=== PATIENT | female | born 1950 | race Caucasian/White ===

== ENCOUNTER 2024-07-01 19:10 | Inpatient (IN) | payer OTHER ==
[~2024-07-01] VITALS: Ht 157.5 cm; Wt 78.2 kg
[2024-07-01] MEDS: ATORVASTATIN 20 MG TAB PO SCH (00:35)
--- NOTE | 2024-07-01 19:31 | ED.PDOC ---
GI ASSESSMENT HPI Comments 73 y.o female with PMH of CHF, presents to the ED via EMS for an evaluation of GI bleed. Patient reports rectal bleeding for the past 2 days associated with nausea, vomiting, abdominal pain, and generalized weakness. Patient is unable to keep any fluid down and has not been able to eat x 2 days due to pain. Today, patient was getting up from the couch at home and had a near syncopal. Patient feels increased weakness now and called 911. EMS reports blood pressure did drop to 90's systolic, was given 500 CC IV fluids bringing it back up to the 100's systolic. Upon ED arrival, patient complains of spontaneous onset chest pain x today. No other symptoms or pain reported. Chief Complaint: GI Bleed Time Seen by MD: 19:24 Reviewed Notes: Nurses Notes, Doughmaker Notes, Medications, Allergies Allergies: Coded Allergies: Cephalexin (Verified Allergy, Unknown, 07/01/24) Information Source: Patient, Emergency Med Personnel Mode of Arrival: EMS Timing: Weeks Duration: Since onset Prehospital treatment: None Quality: Aching Vomitus: Food Particles Stool: Blood Streaked Severity: Moderate Recent: None Recent Hx of: None Pain Location: Diffuse Associated sign and symptoms: Nausea, Vomiting, Hematochezia, Abdominal Pain, Blood in Stool Past Medical History PAST MEDICAL HISTORY: CHF Surgical History: Denies all surgeries SITE LEAD History: No Pertinent SITE LEAD History Family History Family History: Reviewed,noncontributory to illness, No family hx of Cancer, No family hx of DM, No family hx of Heart eugenio, No family hx of HTN, No family hx ofKidney eugenio, No family hx of Liver eugenio, No family hx of Lung eugenio, No family hx of Stroke Social History Smoker: Non-Smoker Alcohol: Denies ETOH Use Drugs: Denies Drug Use Lives In: Home Constitutional: reports: malaise; denies: chills, diaphoresis, fatigue, fever, sweats, weakness, others EENTM: denies: blurred vision, double vision, ear bleeding, ear discharge, ear drainage, ear pain, ear ringing, eye pain, eye redness, hearing loss, mouth pain, mouth swelling, nasal discharge, nose bleeding, nose congestion, nose pain, photophobia, tearing, throat pain, throat swelling, voice changes, others Respiratory: denies: cough, hemoptysis, orthopnea, SOB at rest, shortness of breath, SOB with excertion, stridor, wheezing, others Cardiovascular: denies: chest pain, dizzy spells, diaphoresis, Dyspnea on exertion, edema, irregular heart beat, left arm pain, lightheadedness, palpitations, PND, syncope, others Gastrointestinal: reports: abdominal pain, nausea, rectal bleeding, vomiting; denies: abdomen distended, blood streaked bowels, constipated, diarrhea, dysphagia, difficulty swallowing, hematemesis, melena, poor appetite, poor fluid intake, rectal pain, others Genitourinary: denies: abnormal vagina bleeding, burning, dyspareunia, dysuria, flank pain, frequency, hematuria, incontinence, pain, , vagina discharge, urgency, others Neurological: reports: dizziness; denies: fainting, headache, left sided numbness, left sided weakness, numbness, paresthesia, pre-existing deficit, right sided numbness, right sided weakness, seizure, speech problems, tingling, tremors, weakness, others Musculoskeletal: denies: back pain, gout, joint pain, joint swelling, muscle pain, muscle stiffness, neck pain, others Integumetry: reports: change in color (pale ); denies: bruises, change in hair/nails, dryness, laceration, lesions, lumps, rash, wounds, others Allergic/Immunocompromised: denies: Difficulty Healing, Frequent Infections, Hives, Itching, others Hematologic/Lymphatic: denies: anemia, blood clots, easy bleeding, easy bruising, swollen glands, others Endocrine: denies: excessive hunger, excessive sweating, excessive thirst, excessive urination, flushing, intolerance to cold, intolerance to heat, unexplained weight gain, unexplained weight loss, others Psychiatric: denies: anxiety, bipolar disorder, depression, hopeless, panic disorder, schizophrenia, sleepless, suicidal, others All Other Systems: Reviewed and Negative Physical Exam General Appearance: Mild Distress (Due to rectal bleeding concerns), Normal HEENT: Normal ENT Inspection, Pharynx Normal, TMs Normal Neck: Full Range of Motion, Non-Tender, Normal, Normal Inspection Respiratory: Chest Non-Tender, Lungs Clear, No Accessory Muscle Use, No Respiratory Distress, Normal Breath Sounds Cardiovascular: No Edema, No JVD, No Murmur, No Gallop, Normal Peripheral Pulses, Regular Rate/Rhythm Breast Exam: Deferred Gastrointestinal: No Pulsatile Mass, Normal Bowel Sounds, Soft, Tenderness (Diffuse) Genitalia: Deferred Pelvic: Deferred Rectal: Deferred Extremities: No calf tenderness, Normal capillary refill, Normal inspection, Normal range of motion, Non-tender, No pedal edema Neurologic: Alert, sales account leader II-XII nml as Tested, No Motor Deficits, Normal Affect, Normal Mood, No Sensory Deficits Cerebellar Function: Normal Reflexes: Normal Skin: Dry, Normal Color, Warm Lymphatic: No Adenopathy Was a procedure done? Was a procedure done?: No GI differential Dx Differential Diagnosis: Bowel Obstruction, Cholangitis, Diverticular disease, Gastritis/PUD, Gastroenteritis, GI hemorrhage, Inflammatory BD, Ischemic Bowel, Pancreatitis, Anemia, Esophageal Varicies X-Ray, Labs, Meds, VS Vital Signs Date Time Temp Pulse Resp B/P (MAP) Pulse Ox O2 Delivery O2 Flow Rate FiO2 07/01/24 19:48 Room Air* 0 21 07/01/24 19:28 97 07/01/24 19:21 97.9 83 16 101/69 (80) 98 Lab Test 07/01/24 19:30 Range/Units White Blood Count 8.0 4.4-10.8 10^3/uL Red Blood Count 1.74 L 4.0-5.20 10^6/uL Hemoglobin 4.8 *L 12.2-16.2 g/dL Hematocrit 15.7 L 36.0-46.0 % Mean Corpuscular Volume 90.0 80.0-100.0 fL Mean Corpuscular Hemoglobin 27.3 L 28.0-32.0 pg Mean Corpuscular Hemoglobin Concent 30.4 L 32.0-36.0 g/dL Red Cell Distribution Width 16.3 H 11.8-14.3 % Platelet Count 300 140-450 10^3/uL Mean Platelet Volume 7.8 6.9-10.8 fL Neutrophils (%) (Auto) 77.7 37.0-80.0 % Lymphocytes (%) (Auto) 9.1 L 10.0-50.0 % Monocytes (%) (Auto) 12.4 H 0.0-12.0 % Eosinophils (%) (Auto) 0.2 0.0-7.0 % Basophils (%) (Auto) 0.6 0.0-2.0 % Neutrophils # (Auto) 6.2 1.6-8.6 10 ^3/uL Lymphocytes # (Auto) 0.7 0.4-5.4 10 ^3/uL Monocytes # (Auto) 1.0 0-1.3 10 ^3/uL Eosinophils # (Auto) 0 0-0.8 10 ^3/uL Basophils # (Auto) 0.1 0-0.2 10 ^3/uL Nucleated Red Blood Cells 2.1 % Platelet Estimate Adequate Tear Drop Cells Few Reticulocyte Count (auto) 7.37 H 0.5-1.5 % Sodium Level 144 136-145 mmol/L Potassium Level 4.3 3.5-5.1 mmol/L Chloride Level 111 H 98-107 mmol/L Carbon Dioxide Level 22 20-31 mmol/L Anion Gap 11 5-15 Blood Urea Nitrogen 25 H 9-23 mg/dL Creatinine 0.98 0.550-1.02 mg/dL Glomerular Filtration Rate Calc 61 >90 mL/min BUN/Creatinine Ratio 25.5 H 10.0-20.0 Serum Glucose 124 H 74-106 mg/dL Calcium Level 9.1 8.7-10.4 mg/dL Total Bilirubin 0.6 0.2-1.0 mg/dL Aspartate Amino Transferase (AST) 90 H 13-40 U/L Alanine Aminotransferase (ALT) 50 H 7-40 U/L Alkaline Phosphatase 70 46-116 U/L Lactate Dehydrogenase Pending Troponin I High Sensitivity 13 </=34 ng/L B-Type Natriuretic Peptide 348.63 0-100 pg/mL Total Protein 5.5 L 5.7-8.2 g/dL Albumin 3.8 3.2-4.8 g/dL Current Medications Medications (Trade) Dose Ordered Sig/Eulalia Route Start Time Stop Time Status Last Admin Ondansetron HCl (Zofran Po) 4 mg ONCE ONCE PO 07/01/24 19:30 07/01/24 19:31 DC 07/01/24 19:57 Sodium Chloride 1,000 ml @ 150 mls/hr Q6H40M ONCE IV 07/01/24 19:30 07/02/24 02:09 07/01/24 19:56 Al Hydrox/Mg Hydrox/Simethicone (Maalox Plus) 30 ml ONCE ONCE PO 07/01/24 19:30 07/01/24 19:31 DC 07/01/24 19:56 X-Ray, Labs, Meds, VS Comment All studies performed at the ED today were reviewed by me personally. Imaging studies were unremarkable acute pulmonary concerns. CT ab/pelvis is pending at time of this note. EKG revealed unknown rhythm with irregular rate, rate 97, WA int. of 142 and QT int. of 431. My represent rate controlled Afib. Labs revealed critical anemia as well as an acute CHF exacerbation. Pt will be admitted for eval. of critical anemia as well as cardiac evaluation. Time of 1ST Reevaluation: 20:23 Reevaluation 1ST: Unchanged Consultation: PCP, Cardiology Patient Education/Counseling: Diagnosis, Treatment, Prognosis Family Education/Counseling: Diagnosis, Treatment, No Family Present Departure 1 Departure Time of Disposition: 20:23 Impression: Primary Impression: Anemia Additional Impressions: Rectal bleed Acute exacerbation of CHF (congestive heart failure) Cardiac abnormality Disposition: ADMITTED INPATIENT Condition: Fair Discharged With: Self Critical Care Note Critical Care Time?: No Stability Stability form required: No I personally scribed for LIDIA JUDGE PAC ([email or web address]) on 07/01/24 at 19:31. Elec tronically submitted by Mala Joshi ([facility]). LIDIA JUDGE PAC Jul 01, 2024 19:31
[2024-07-01 19:44] LABS: Basophils # (auto) 0.1 10 ^3/uL (0-0.2); Eosinophils # (auto) 0 10 ^3/uL (0-0.8); Mean Corpuscular Hemoglobin 27.3 pg (28.0-32.0)
[2024-07-01 19:46] LABS: Basophils % (auto) 0.6 % (0.0-2.0); Eosinophils % (auto) 0.2 % (0.0-7.0); Hematocrit 15.7 % (36.0-46.0); Lymphocytes # (auto) 0.7 10 ^3/uL (0.4-5.4); Lymphocytes % (auto) 9.1 % (10.0-50.0); Mean Corpuscular Hgb Conc. 30.4 g/dL (32.0-36.0); Monocytes % (auto) 12.4 % (0.0-12.0); Neutrophils # (auto) 6.2 10 ^3/uL (1.6-8.6); Neutrophils % (auto) 77.7 % (37.0-80.0); Nucleated Red Blood Cells % 2.1 %; Platelet Count (auto) 300 10^3/uL (140-450); Red Blood Cells 1.74 10^6/uL (4.0-5.20); Red Cell Distribution Width 16.3 % (11.8-14.3)
[2024-07-01 19:49] LABS: Hemoglobin 4.8 g/dL (12.2-16.2)
[2024-07-01] MEDS: MAALOX PLUS or MAALOX 30 ML PO ONE (19:56)
[2024-07-01] MEDS: SODIUM CHLORIDE 0.9% 1,000 ML IV ONE (19:56)
[2024-07-01] MEDS: ONDANSETRON ODT 4 MG TAB PO ONE (19:57)
[2024-07-01 20:01] LABS: Alanine Aminotransferase 50 U/L (7-40); Albumin 3.8 g/dL (3.2-4.8); Alkaline Phosphatase 70 U/L (46-116); Anion Gap 11 (5-15); Aspartate Aminotransferase 90 U/L (13-40); BUN/Creatinine Ratio 25.5 (10.0-20.0); Blood Urea Nitrogen 25 mg/dL (9-23); Calcium 9.1 mg/dL (8.7-10.4); Carbon Dioxide 22 mmol/L (20-31); Chloride 111 mmol/L (98-107); Glucose 124 mg/dL (74-106); Potassium 4.3 mmol/L (3.5-5.1); Sodium 144 mmol/L (136-145)
[2024-07-01 20:02] LABS: Bilirubin, Total 0.6 mg/dL (0.2-1.0); Total Protein 5.5 g/dL (5.7-8.2)
[2024-07-01 20:06] LABS: Platelet Estimate Adequate; Tear Drop Cells FEW
--- NOTE | 2024-07-01 20:13 | DVH ---
CHEST RADIOGRAPH Indication:Chest pain Technique: Single frontal view of the chest was obtained Comparison: None FINDINGS: Lines and Tubes: None Lungs: No focal consolidation. Pleura: No effusion. No pneumothorax. Cardiomediastinal contours: Unremarkable Bones: No acute osseous abnormality. Peripherally calcified bilateral breast implants. IMPRESSION: No acute cardiopulmonary disease.
[2024-07-01] MEDS: IOHEXOL 300 MG/ML 100ML BOTTLE IJ ONE (20:24)
--- NOTE | 2024-07-01 21:42 | DVH ---
Exam: CT CT AB PEL WITH IV CON ONLY History: GI bleed Comparison Study: None available at time of dictation. TECHNIQUE: Multidetector CT of the abdomen was performed from lung bases to pubic symphysis. Imaging was performed without IV contrast. Axial, coronal and sagittal multiplanar reformats were obtained fr om the axial data set by the technologist. Radiation Dose Information: CT Dose: CTDI volume is 16.82 mGy. Dose-length product is 902.69 mGy*cm Omnipaque 300: 100 mL FINDINGS: Evaluation of solid organs is limited due to lack of intravenous contrast use. Findings: Lung Bases: No acute or significant lung base finding. Normal heart size. No pleural or pericardial effusion. Liver: The liver is normal in size. No focal lesions. Gallbladder and Biliary Tree: Unremarkable Spleen: Unremarkable Pancreas: The pancreas is grossly normal in appearance. Adrenal Glands: Unremarkable Kidneys: Kidneys are grossly normal without calculi or hydronephrosis. Bladder: Grossly unremarkable for degree of distention. Bowel: The stomach is grossly normal in appearance. Small bowel and colon are normal in caliber and d istribution. No contrast noted in the colon. There is mucosal thickening of the left colon. Correlate for possible colitis. The appendix is not visualized; however, no secondary findings of acute append icitis identified. Ascites: Absent Lymphadenopathy: No mesenteric, retroperitoneal or periportal lymphadenopathy. Abdominal Wall and Mesentery: Unremarkable. Vasculature: The visualized abdominal aorta is normal in size and caliber. Evaluation of abdominal a nd pelvic vessels is limited due to lack of intravenous contrast. Pelvic Organs: Unremarkable Musculoskeletal: No aggressive focal bony lesions, acute fractures or dislocation. Soft tissues: Unremarkable IMPRESSION: 1. No findings to suggest bowel obstruction. 2. No IV contrast noted in the colon to suggest bleed at this time. 3. Mucosal thickening of the left colon. Correlate possibility of colitis on the left. Radiation optimization: All CT scans at this facility use at least one of these dose optimization faustino hniques: automated exposure control mA and/or kV adjustment per patient size (includes targeted exam s where dose is matched to clinical indication) or iterative reconstruction.
[2024-07-01] MEDS: FUROSEMIDE 40 MG/4 ML VIAL IV ONE (21:44)
[2024-07-01] MEDS ORDERED: DOCUSATE SOD 100 MG CAP PO PRN (21:45)
[2024-07-01] MEDS ORDERED: HYDROcodone-ACET 5/325MG TAB PO PRN (21:45)
[2024-07-01] MEDS ORDERED: ONDANSETRON HCL 4 MG/2 ML VIAL IV PRN (21:45)
[2024-07-01] MEDS: SODIUM CHLOR 0.9% PF (SALINE LOCK) 10ML VIAL/SYR IV SCH (22:00)
[2024-07-01 22:25] VITALS: BP 103/43; PULSE 96; RESP 21; TEMP 98.7
--- NOTE | 2024-07-01 22:48 | DVHHP2 ---
History of Present Illness Reason for Visit: GI bleed History of Present Illness The patient is a 73-year-old female with past medical history of congestive failure who presented to [facility] ED with complaint of GI bleed. Patient reports rectal bleeding for the past 2 days associated with nausea, vomiting, abdominal pain, and generalized weakness. Patient is unable to keep any fluid down and has not been able to eat x 2 days due to pain, had a near syncopal getting worse today that prompted this visit. Patient was seen and evaluated in the ED, laboratory data shows WBC 8.0, hemoglobin 4.8, hematocrit 15.7, platelets 300, sodium 144, potassium 4.3, BUN 25, creatinine 0.98, glucose 124, BNP 348.63, AST 90, ALT 50, troponin 13. Abdomen/pelvis CT showed no findings to suggest bowel obstruction. Patient will receive 2 units of PRBC, please see medication orders section in the computer. On my assessment, patient denied chest pain, no headache, no dizziness, no blurry vision, no loss of consciousness, no shortness of breath, no nausea, no vomiting, no fever, no chills. Patient was admitted for further evaluation and medical management. Past Medical History CHF Past Surgical History Denies all surgeries Family History Reviewed, noncontributory to the management of this case. Past Social History The patient lives at home, denies smoking, alcohol or illicit drugs abuse. Review of Systems Constitutional: Yes: Weakness, Malaise; No: Fever, Chills, Sweats, Other Eyes: No: Pain, Vision change, Conjunctivae inflammation, Eyelid inflammation, Other, Redness ENT: No: Ear pain, Ear discharge, Nose pain, Nose discharge, Nose congestion, Mouth pain, Mouth swelling, Throat pain, Throat swelling, Other Respiratory: No: Cough, Dry, Shortness of breath, SOB with excertion, Wheezing, Hemoptysis, Pleuritic Pain, Sputum, Wheezing, Other Cardiovascular: No: Chest Pain, Palpitations, Orthopnea, Paroxysmal Noc. Dyspnea, Edema, Lt Headedness, Other Gastrointestinal: Nausea, Vomiting, Abdominal Pain; No: Diarrhea, Constipation, Melena, Hematochezia, Other Genitourinary: No Dysuria, No Frequency, No Incontinence, No Hematuria, No Retention; Other (Rectal bleeding) Musculoskeletal: No: other, neck pain, shoulder pain, arm pain, back pain, hand pain, leg pain, foot pain Skin: Other (Pale skin color); No: Rash, Lesions, Jaundice, Bruising Neurological: Other (Dizziness); No: Weakness, Numbness, Incoordination, Change in speech, Confusion, Seizures Allergies: Coded Allergies: Cephalexin (Verified Allergy, Unknown, 07/01/24) Medications Current Medications Medications Dose Ordered Sig/Eulalia Route Start Time Stop Time Status Last Admin Dose Admin Furosemide 40 mg DAILY IV 07/02/24 10:00 Pantoprazole Sodium 40 mg BID IV 07/01/24 22:00 Carvedilol 3.125 mg Q12HR PO 07/01/24 22:00 Atorvastatin Calcium 20 mg HS PO 07/01/24 22:00 Sodium Chloride 10 ml Q8HR IV 07/01/24 22:00 Acetaminophen/ Hydrocodone Bitart 1 tab Q4HP PRN PO 07/01/24 21:45 Ondansetron HCl 4 mg Q4HP PRN IV 07/01/24 21:45 Docusate Sodium 100 mg BIDPRN PRN PO 07/01/24 21:45 Acetaminophen 500 mg Q6HP PRN PO 07/01/24 21:45 Exam Vital Signs Vital Signs Date Time Temp Pulse Resp B/P (MAP) Pulse Ox O2 Delivery O2 Flow Rate FiO2 07/01/24 22:25 98.7 96 21 103/43 98.7 07/01/24 21:00 99 07/01/24 19:48 Room Air* 0 21 General Appearance: Alert, Oriented X3, Cooperative, No acute distress HEENT: Atraumatic, PERRLA, EOMI, Mucous membr. moist/pink Respiratory: Clear to auscultation, Normal air movement Cardiovascular: Regular rate, Normal S1, Normal S2, No murmurs Abdominal: Normal bowel sounds, Soft, No tenderness, No hepatospenomegaly, No masses Extremities: No clubbing, No cyanosis, No edema, Normal pulses, No tenderness/swelling Skin: No rashes, No breakdown, No significant lesion Neuro: Normal speech, Normal tone, Sensation intact, Cranial nerves 3-12 NL, Reflexes 2+, Other (Generalized weakness) Psych/Mental Status: Mental status NL, Mood NL Labs/Xrays Labs Test 07/01/24 22:10 07/01/24 20:55 07/01/24 19:30 Range/Units Troponin I High Sensitivity 14 </=34 ng/L White Blood Count 8.0 4.4-10.8 10^3/uL Red Blood Count 1.74 L 4.0-5.20 10^6/uL Hemoglobin 4.8 *L 12.2-16.2 g/dL Hematocrit 15.7 L 36.0-46.0 % Mean Corpuscular Volume 90.0 80.0-100.0 fL Mean Corpuscular Hemoglobin 27.3 L 28.0-32.0 pg Mean Corpuscular Hemoglobin Concent 30.4 L 32.0-36.0 g/dL Red Cell Distribution Width 16.3 H 11.8-14.3 % Platelet Count 300 140-450 10^3/uL Mean Platelet Volume 7.8 6.9-10.8 fL Neutrophils (%) (Auto) 77.7 37.0-80.0 % Lymphocytes (%) (Auto) 9.1 L 10.0-50.0 % Monocytes (%) (Auto) 12.4 H 0.0-12.0 % Eosinophils (%) (Auto) 0.2 0.0-7.0 % Basophils (%) (Auto) 0.6 0.0-2.0 % Neutrophils # (Auto) 6.2 1.6-8.6 10 ^3/uL Lymphocytes # (Auto) 0.7 0.4-5.4 10 ^3/uL Monocytes # (Auto) 1.0 0-1.3 10 ^3/uL Eosinophils # (Auto) 0 0-0.8 10 ^3/uL Basophils # (Auto) 0.1 0-0.2 10 ^3/uL Nucleated Red Blood Cells 2.1 % Platelet Estimate Adequate Tear Drop Cells Few Reticulocyte Count (auto) 7.37 H 0.5-1.5 % Sodium Level 144 136-145 mmol/L Potassium Level 4.3 3.5-5.1 mmol/L Chloride Level 111 H 98-107 mmol/L Carbon Dioxide Level 22 20-31 mmol/L Anion Gap 11 5-15 Blood Urea Nitrogen 25 H 9-23 mg/dL Creatinine 0.98 0.550-1.02 mg/dL Glomerular Filtration Rate Calc 61 >90 mL/min BUN/Creatinine Ratio 25.5 H 10.0-20.0 Serum Glucose 124 H 74-106 mg/dL Calcium Level 9.1 8.7-10.4 mg/dL Total Bilirubin 0.6 0.2-1.0 mg/dL Aspartate Amino Transferase (AST) 90 H 13-40 U/L Alanine Aminotransferase (ALT) 50 H 7-40 U/L Alkaline Phosphatase 70 46-116 U/L Lactate Dehydrogenase 246 120-246 U/L B-Type Natriuretic Peptide 348.63 0-100 pg/mL Total Protein 5.5 L 5.7-8.2 g/dL Albumin 3.8 3.2-4.8 g/dL PATIENT: CARLIE ROB ACCT: [id number] UNIT: [id number] : 1950 LOC: ER ROOM / BED: / AGE / SEX: 73 / F ADM STATUS: REG ER SERVICE 15 ORDERING PHYSICIAN: LIDIA JUDGE PAC PROCEDURE(s): ABPLIV - CT AB PEL WITH IV CON ONLY REASON: GI bleed ORDER NUMBER(s): [id number], ACCESSION NUMBER(s): [id number] Exam: CT CT AB PEL WITH IV CON ONLY History: GI bleed Comparison Study: None available at time of dictation. TECHNIQUE: Multidetector CT of the abdomen was performed from lung bases to pubic symphysis. Imaging was performed without IV contrast. Axial, coronal and sagittal multiplanar reformats were obtained from the axial data set by the technologist. Radiation Dose Information: CT Dose: CTDI volume is 16.82 mGy. Dose-length product is 902.69 mGy*cm Omnipaque 300: 100 mL FINDINGS: Evaluation of solid organs is limited due to lack of intravenous contrast use. Findings: Lung Bases: No acute or significant lung base finding. Normal heart size. No pleural or pericardial effusion. Liver: The liver is normal in size. No focal lesions. Gallbladder and Biliary Tree: Unremarkable Spleen: Unremarkable Pancreas: The pancreas is grossly normal in appearance. Adrenal Glands: Unremarkable Kidneys: Kidneys are grossly normal without calculi or hydronephrosis. Bladder: Grossly unremarkable for degree of distention. Bowel: The stomach is grossly normal in appearance. Small bowel and colon are normal in caliber and distribution. No contrast noted in the colon. There is mucosal thickening of the left colon. Correlate for possible colitis. The appendix is not visualized; however, no secondary findings of acute appendicitis identified. Ascites: Absent Lymphadenopathy: No mesenteric, retroperitoneal or periportal lymphadenopathy. Abdominal Wall and Mesentery: Unremarkable. Vasculature: The visualized abdominal aorta is normal in size and caliber. Evaluation of abdominal and pelvic vessels is limited due to lack of intravenous contrast. Pelvic Organs: Unremarkable Musculoskeletal: No aggressive focal bony lesions, acute fractures or dislocation. Soft tissues: Unremarkable IMPRESSION: 1. No findings to suggest bowel obstruction. 2. No IV contrast noted in the colon to suggest bleed at this time. 3. Mucosal thickening of the left colon. Correlate possibility of colitis on the left. ORDERING PHYSICIAN: LIDIA JUDGE PAC PROCEDURE(s): CXRP - CHEST PORTABLE REASON: Chest pain ORDER NUMBER(s): [id number], ACCESSION NUMBER(s): [id number] CHEST RADIOGRAPH Indication:Chest pain Technique: Single frontal view of the chest was obtained Comparison: None FINDINGS: Lines and Tubes: None Lungs: No focal consolidation. Pleura: No effusion. No pneumothorax. Cardiomediastinal contours: Unremarkable Bones: No acute osseous abnormality. Peripherally calcified bilateral breast implants. IMPRESSION: No acute cardiopulmonary disease. Assessment/Plan Assessment/Plan Symptomatic anemia Blood loss anemia Rectal bleed Gastrointestinal bleed Elevated liver enzymes Acute exacerbation of congestive heart failure Plan 1. Admit to telemetry unit 2. Breathing treatment 3. Pain control management 4. Management of fluids and electrolytes 5. Consultation for GI/hospitalist 6. Diagnostic tests abdomen/pelvis CT 7. DVT prophylaxis on SCDs 8. Repeat labs CBC, CMP in a.m. 9. Continue with current medical management 10. Treatment plan discussed with patient and RN. Patient verbalized understanding. Plan discussed with: Patient, Other (RN) My Orders Orders - GRETRUDE FORD DNP Procedure Category Date Status Time Furosemide Injection PHA 07/02/24 In Process (Lasix Injection) 10:00 Pantoprazole PHA 07/01/24 In Process (Protonix) 22:00 Carvedilol Tablet PHA 07/01/24 In Process (Coreg Tablet) 22:00 Atorvastatin (Lipitor) PHA 07/01/24 In Process 22:00 * Gi Dvh X Ray Equipment Mechanic CONS 07/01/24 Transmitted 21:40 Allergies ANDRE 07/01/24 In Process 21:40 Code Status CODE 07/01/24 Transmitted 21:40 Sodium Chloride Lock PHA 07/01/24 In Process (Saline Lock Ns) 22:00 Oxygen Per Hour RT 07/01/24 Transmitted 21:40 Hydrocodone-Acet PHA 07/01/24 In Process 5/325mg Tab (Alna 21:45 Ondansetron Hcl PHA 07/01/24 In Process (Zofran) 21:45 Docusate Sodium PHA 07/01/24 In Process Capsule (Colace 21:45 Fall Risk Precautions ANDRE 07/01/[address] 21:40 Complete Blood Count LAB 07/02/24 Verified 04:00 Comprehensive LAB 07/02/24 Verified Metabolic Panel 04:00 Condition: Serious ANDRE 07/01/24 In Process 21:40 Acetaminophen Tablet PHA 07/01/24 In Process (Tylenol Tablet) 21:45 Clear Liq Diet DIET 07/02/24 Transmitted Breakfast Sequential ANDRE 07/01/24 In Process Compression Device Admit ADMIT 07/01/24 Verified 22:47 Nitroglycerin PHA 07/01/24 Verified Sublingual (Ntrostat 23:00 Morphine Sulfate PHA 07/01/24 Verified Injection 23:00 Notify Of Changes ANDRE 07/01/24 Verified From Base 22:47 Stock And Station Agent For [facility] 07/01/24 Verified 24 Hours 22:47 Emergency Dysrhythmia ANDRE 07/01/24 Verified Protocol 22:47 Rhythm Strips Once [facility] 07/01/24 Verified Every Shift 22:47 Oxygen By Nasal RT 07/01/24 Verified Cannula 22:47 Problem List: (1) Symptomatic anemia (2) Blood loss anemia (3) Gastrointestinal bleed (4) Rectal bleed (5) Elevated liver enzymes (6) Acute exacerbation of congestive heart failure Date of Service: Jul 01, 2024 Billing Provider: GERTRUDE FORD DNP Common Visit Codes: [id number] INP/OBS CARE (HIGH) GERTRUDE FORD DNP Jul 01, 2024 22:48
[2024-07-01 22:53] VITALS: BP 118/43; PULSE 75; RESP 16; TEMP 99
[2024-07-01] MEDS ORDERED: NITROGLYCERIN 0.4 MG SL TAB SL PRN (23:00)
[2024-07-01] MEDS ORDERED: MORPHINE SULFATE INJ 2 MG/ml SYRG IV PRN (23:00)
[2024-07-01 23:01] LABS: Urine Bacteria FEW /hpf (None Seen); Urine Blood 2+ /uL (Negative); Urine Clarity Clear (Clear); Urine Color Light-Yellow (Yellow); Urine Mucus FEW (None Seen); Urine Protein, UAD TRACE (Negative); Urine Specific Gravity 1.024 (1.001-1.035); Urine Urobilinogen Normal (Negative); Urine WBC 1 /hpf (0 - 5)
[2024-07-02] VITALS (14 sets, daily range): BP systolic 84–133; BP diastolic 35–65; PULSE 64–108; RESP 16–20; TEMP 97.7–102.6; O2SAT 94–100
[2024-07-02] MEDS: PANTOPRAZOLE 40 MG/10 ML VIAL INJ IV SCH (00:35)
[2024-07-02] MEDS: CARVEDILOL 3.125 MG TAB PO SCH (00:35)
--- NOTE | 2024-07-02 06:15 | ECG ---
[facility] Test Date: 2024-07-01 Test Time: 19:28:26 Pat Name: CARLIE ROB Department: ED Room: 0246T Gender: F Equipment Scheduler: ELYSIA : 1950 Requested By: LIDIA JUDGE Order Number: [id number] Reading MD: Measurements Intervals [place] Rate: 97 P: 98 SD: 142 QRS: 68 QRSD: 107 T: -48 QT: 431 QTc: 548 Interpretive Statements Unknown rhythm, irregular rate Anterior infarct, age indeterminate Prolonged QT interval Please click the below link to view image of tracing.
[2024-07-02 07:13] LABS: Basophils # (auto) 0 10 ^3/uL (0-0.2); Eosinophils # (auto) 0 10 ^3/uL (0-0.8); Lymphocytes # (auto) 0.8 10 ^3/uL (0.4-5.4); Monocytes # (auto) 0.8 10 ^3/uL (0-1.3); White Blood Cell 5.8 10^3/uL (4.4-10.8)
[2024-07-02 07:16] LABS: Basophils % (auto) 0.7 % (0.0-2.0); Eosinophils % (auto) 0.3 % (0.0-7.0); Hematocrit 20.6 % (36.0-46.0); Lymphocytes % (auto) 14.2 % (10.0-50.0); Mean Corpuscular Hemoglobin 29.1 pg (28.0-32.0); Mean Corpuscular Hgb Conc. 32.8 g/dL (32.0-36.0); Mean Corpuscular Volume 88.7 fL (80.0-100.0); Monocytes % (auto) 13.2 % (0.0-12.0); Neutrophils # (auto) 4.2 10 ^3/uL (1.6-8.6); Neutrophils % (auto) 71.6 % (37.0-80.0); Nucleated Red Blood Cells % 2.7 %; Platelet Count (auto) 217 10^3/uL (140-450); Red Blood Cells 2.32 10^6/uL (4.0-5.20); Red Cell Distribution Width 15.4 % (11.8-14.3)
[2024-07-02 07:21] LABS: Hemoglobin 6.8 g/dL (12.2-16.2)
[2024-07-02 07:33] LABS: Alanine Aminotransferase 53 U/L (7-40); Albumin 3.6 g/dL (3.2-4.8); Alkaline Phosphatase 60 U/L (46-116); Anion Gap 7 (5-15); Aspartate Aminotransferase 98 U/L (13-40); BUN/Creatinine Ratio 21.7 (10.0-20.0); Blood Urea Nitrogen 20 mg/dL (9-23); Calcium 8.6 mg/dL (8.7-10.4); Carbon Dioxide 27 mmol/L (20-31); Chloride 110 mmol/L (98-107); Glucose 93 mg/dL (74-106); Potassium 3.4 mmol/L (3.5-5.1); Sodium 144 mmol/L (136-145)
[2024-07-02 07:34] LABS: Bilirubin, Total 0.8 mg/dL (0.2-1.0); Total Protein 5.2 g/dL (5.7-8.2)
[2024-07-02] MEDS: FUROSEMIDE 40 MG/4 ML VIAL IV SCH (08:27)
[2024-07-02] MEDS: ACETAMINOPHEN 325 MG TAB PO PRN (08:28)
[2024-07-02] MEDS: SODIUM CHLORIDE 0.9% 1,000 ML IV SCH (16:48)
--- NOTE | 2024-07-02 19:47 | DVHINCON2 ---
Date of service: Jul 02, 2024 Referring Physician Jesus Ayala Reason for Consultation Severe anemia History of Present Illness The patient is a 73-year-old female with past medical history of congestive failure who presented to [facility] ED with complaint of GI bleed. Patient reports rectal bleeding for the past 2 days associated with nausea, vomiting, abdominal pain, and generalized weakness. Patient is unable to keep any fluid down and has not been able to eat x 2 days due to pain, had a near syncopal getting worse today that prompted this visit. Patient was found to have severe anemia with a hemoglobin of 4.8. She received 2 units PRBC and repeat hemoglobin is 6.8. Her last colonoscopy was five years ago and she believes some polyps were removed. Patient is referred as an outpatient has an appointment with a mri supervisor in June to arrange surveillance colonoscopy. Past Medical History CHF Past Surgical History Colonoscopy Family History: Diabetes mellitus G8 MOTHER Allergies: Coded Allergies: Cephalexin (Verified Allergy, Unknown, 07/01/24) Current Medications Current Medications Medications (Trade) Dose Ordered Sig/Eulalia Route PRN Reason Start Time Stop Time Status Last Admin Furosemide (Lasix Injection) 40 mg DAILY IV 07/02/24 10:00 07/02/24 08:27 Pantoprazole Sodium (Protonix) 40 mg BID IV 07/01/24 22:00 07/02/24 08:26 Carvedilol (Coreg Tablet) 3.125 mg Q12HR PO 07/01/24 22:00 07/02/24 08:27 Atorvastatin Calcium (Lipitor) 20 mg HS PO 07/01/24 22:00 Sodium Chloride (Saline Lock Ns) 10 ml Q8HR IV 07/01/24 22:00 07/02/24 13:38 Acetaminophen/ Hydrocodone Bitart ([place] 5/325MG Tab) 1 tab Q4HP PRN PO MODERATE PAIN (4-6 PAIN SCALE) 07/01/24 21:45 Ondansetron HCl (Zofran) 4 mg Q4HP PRN IV NAUSEA / VOMITING 07/01/24 21:45 Docusate Sodium (Colace Capsule) 100 mg BIDPRN PRN PO FOR CONSTIPATION 07/01/24 21:45 Acetaminophen (Tylenol Tablet) 500 mg Q6HP PRN PO PAIN SCALE 1-3 OR TEMP>100.4 07/01/24 21:45 07/02/24 08:28 Nitroglycerin (Ntrostat Sublingual) 0.4 mg Q5MINP PRN SL FOR CHEST PAIN 07/01/24 23:00 Morphine Sulfate 2 mg Q30M PRN IV FOR CHEST PAIN 07/01/24 23:00 Sodium Chloride 1,000 ml @ 50 mls/hr Q20H IV 07/02/24 16:30 07/02/24 16:48 Vital Signs Vital Signs Date Time Temp Pulse Resp B/P (MAP) Pulse Ox O2 Delivery O2 Flow Rate FiO2 07/02/24 17:37 98.6 76 17 103/64 (77) 96 98.6 07/02/24 08:00 Nasal Cannula* 2 28 Physical Exam General Appearance: Alert, Oriented X3, Cooperative, No acute distress HEENT: Atraumatic, PERRLA, EOMI, Mucous membr. moist/pink Respiratory: Clear to auscultation, Normal air movement Cardiovascular: Regular rate, Normal S1, Normal S2, No murmurs Abdominal: Normal bowel sounds, Soft, No tenderness, No hepatospenomegaly, No masses Extremities: No clubbing, No cyanosis, No edema, Normal pulses, No tenderness/s welling Skin: No rashes, No breakdown, No significant lesion Neuro: Normal speech, Normal tone, Sensation intact, Cranial nerves 3-12 NL, Reflexes 2+, Other (Generalized weakness) Psych/Mental Status: Mental status NL, Mood NL Labs/Diagnostic Data Labs Test 07/02/24 06:13 07/01/24 22:10 07/01/24 20:55 07/01/24 19:30 Range/Units White Blood Count 5.8 # 4.4-10.8 10^3/uL Red Blood Count 2.32 L 4.0-5.20 10^6/uL Hemoglobin 6.8 #*L 12.2-16.2 g/dL Hematocrit 20.6 #L 36.0-46.0 % Mean Corpuscular Volume 88.7 80.0-100.0 fL Mean Corpuscular Hemoglobin 29.1 28.0-32.0 pg Mean Corpuscular Hemoglobin Concent 32.8 32.0-36.0 g/dL Red Cell Distribution Width 15.4 H 11.8-14.3 % Platelet Count 217 140-450 10^3/uL Mean Platelet Volume 8.0 6.9-10.8 fL Neutrophils (%) (Auto) 71.6 37.0-80.0 % Lymphocytes (%) (Auto) 14.2 10.0-50.0 % Monocytes (%) (Auto) 13.2 H 0.0-12.0 % Eosinophils (%) (Auto) 0.3 0.0-7.0 % Basophils (%) (Auto) 0.7 0.0-2.0 % Neutrophils # (Auto) 4.2 1.6-8.6 10 ^3/uL Lymphocytes # (Auto) 0.8 0.4-5.4 10 ^3/uL Monocytes # (Auto) 0.8 0-1.3 10 ^3/uL Eosinophils # (Auto) 0 0-0.8 10 ^3/uL Basophils # (Auto) 0 0-0.2 10 ^3/uL Nucleated Red Blood Cells 2.7 % Sodium Level 144 136-145 mmol/L Potassium Level 3.4 L 3.5-5.1 mmol/L Chloride Level 110 H 98-107 mmol/L Carbon Dioxide Level 27 20-31 mmol/L Anion Gap 7 5-15 Blood Urea Nitrogen 20 9-23 mg/dL Creatinine 0.92 0.550-1.02 mg/dL Glomerular Filtration Rate Calc 65 >90 mL/min BUN/Creatinine Ratio 21.7 H 10.0-20.0 Serum Glucose 93 74-106 mg/dL Calcium Level 8.6 L 8.7-10.4 mg/dL Total Bilirubin 0.8 0.2-1.0 mg/dL Aspartate Amino Transferase (AST) 98 H 13-40 U/L Alanine Aminotransferase (ALT) 53 H 7-40 U/L Alkaline Phosphatase 60 46-116 U/L Total Protein 5.2 L 5.7-8.2 g/dL Albumin 3.6 3.2-4.8 g/dL Urine Color Light-yellow Yellow Urine Clarity Clear Clear Urine pH 5.0 5.0-9.0 Urine Specific [place] 1.024 1.001-1.035 Urine Protein Trace H Negative Urine Ketones Negative Negative Urine Blood 2+ H Negative /uL Urine Nitrite Negative Negative Urine Bilirubin Negative Negative Urine Urobilinogen Normal Negative mg/dL Urine Leukocyte Esterase Negative Negative /uL Urine RBC <1 0 - 4 /hpf Urine WBC 1 0 - 5 /hpf Urine Squamous Epithelial Cells Few <5 /hpf Urine Bacteria Few H None Seen /hpf Urine Mucus Few None Seen Urine Glucose Normal Normal mg/dL Troponin I High Sensitivity 14 </=34 ng/L Platelet Estimate Adequate Tear Drop Cells Few Reticulocyte Count (auto) 7.37 H 0.5-1.5 % Lactate Dehydrogenase 246 120-246 U/L B-Type Natriuretic Peptide 348.63 0-100 pg/mL CT Scan Abd Pelvis IMPRESSION: 1. No findings to suggest bowel obstruction. 2. No IV contrast noted in the colon to suggest bleed at this time. 3. Mucosal thickening of the left colon. Correlate possibility of colitis on the left. Problems(with codes): (1) Rhabdomyolysis (2) Abnormal finding on GI tract imaging (3) Elevated liver enzymes (4) Symptomatic anemia (5) Acute exacerbation of congestive heart failure (6) Blood loss anemia (7) Rectal bleed Plan/Recommendation Plan Transfused one more unit PRBC Continue Protonix 40 mg q.12 hours Possible endoscopy on 07/03/2024 to rule out peptic ulcer disease Based on CT findings and clinical presentation the patient likely may have ischemic colitis of the watershed area If the EGD shows no active bleeding I will schedule her for possible colonoscopy in the next 48-72 hours Continue IV fluid hydration Patient also noted to have blood in her stool with no RBCs suggestive of mild rhabdomyolysis Continue to monitor labs IV fluid hydration with bicarb Plan discussed with: Patient, Spouse GRAYSON JOSE MD Jul 02, 2024 19:47
--- NOTE | 2024-07-02 21:13 | DVHPN2 ---
Subjective History of Present Illness The patient is a 73-year-old female with past medical history of congestive failure who presented to [facility] ED with complaint of GI bleed. P atient reports rectal bleeding for the past 2 days associated with nausea, vomiting, abdominal pain, and generalized weakness. Patient is unable to keep any fluid down and has not been able to eat x 2 days due to pain, had a near syncopal getting worse today that prompted this visit. Patient was seen and evaluated in the ED, laboratory data shows WBC 8.0, hemoglobin 4.8, hematocrit 15.7, platelets 300, sodium 144, potassium 4.3, BUN 25, creatinine 0.98, glucose 124, BNP 348.63, AST 90, ALT 50, troponin 13. Abdomen/pelvis CT showed no findings to suggest bowel obstruction. Patient will receive 2 units of PRBC, Update - 07/02 - she is feeling much improved after 2 units RBC. Her most recent bowel movement did have blood in it. She is unable to clarify whether the bowel was were dark black versus bright red, she says there was some varying between. Declines any hematemesis. She understands the plan and already has discussed the plan with GI doctor. NPO midnight Reviewed: H&P Changes from previous H/P or p: No Changes Genitourinary: Other (Rectal bleeding) Musculoskeletal: No other, No neck pain, No shoulder pain, No arm pain, No back pain, No hand pain, No leg pain, No foot pain Skin: No Rash, No Lesions, No Jaundice, No Bruising; Other (Pale skin color) Objective Vitals Vital Signs Date Time Temp Pulse Resp B/P (MAP) Pulse Ox O2 Delivery O2 Flow Rate FiO2 07/02/24 17:37 98.6 76 17 103/64 (77) 96 98.6 07/02/24 08:00 Nasal Cannula* 2 28 Intake/Output Intake and Output 07/02/24 07:00 Intake Total 1250 ml Output Total 200 ml Balance 1050 ml Intake Oral 200 ml IV Total 450 ml Blood Product 600 ml Output Urine Total 200 ml Exam GEN: Healthy appearing, well-developed, NAD. Patient appears mildly pale. HEENT: NC/AT; MMM. Conjunctival pallor. CV: RRR, no m/r/g. LUNGS: CTAB, no w/r/c. ABD: Soft, NT/ND, NBS, no masses or organomegaly. EXT: skin Warm, well perfused. no rashes. No clubbing, cyanosis, or edema. NEURO: Ambulating with no limitations. No focal deficits. Medications Current Medications Medications Dose Ordered Sig/Eulalia Route Start Time Stop Time Status Last Admin Dose Admin Furosemide 40 mg DAILY IV 07/02/24 10:00 07/02/24 08:27 40 MG Pantoprazole Sodium 40 mg BID IV 07/01/24 22:00 07/02/24 08:26 40 MG Carvedilol 3.125 mg Q12HR PO 07/01/24 22:00 07/02/24 08:27 3.125 MG Atorvastatin Calcium 20 mg HS PO 07/01/24 22:00 Sodium Chloride 10 ml Q8HR IV 07/01/24 22:00 07/02/24 13:38 10 ML Acetaminophen/ Hydrocodone Bitart 1 tab Q4HP PRN PO 07/01/24 21:45 Ondansetron HCl 4 mg Q4HP PRN IV 07/01/24 21:45 Docusate Sodium 100 mg BIDPRN PRN PO 07/01/24 21:45 Acetaminophen 500 mg Q6HP PRN PO 07/01/24 21:45 07/02/24 08:28 500 MG Nitroglycerin 0.4 mg Q5MINP PRN SL 07/01/24 23:00 Morphine Sulfate 2 mg Q30M PRN IV 07/01/24 23:00 Sodium Chloride 1,000 ml @ 50 mls/hr Q20H IV 07/02/24 16:30 07/02/24 16:48 50 MLS/HR Laboratory Results Laboratory Tests 07/02/24 06:13 Chemistry Test 07/02/24 06:13 Albumin 3.6 g/dL (3.2-4.8) Calcium Level 8.6 mg/dL (8.7-10.4) L Total Protein 5.2 g/dL (5.7-8.2) L LFT Test 07/02/24 06:13 Alanine Aminotransferase (ALT) 53 U/L (7-40) H Alkaline Phosphatase 60 U/L (46-116) Aspartate Amino Transferase (AST) 98 U/L (13-40) H Total Bilirubin 0.8 mg/dL (0.2-1.0) Urinalysis Test 07/01/24 22:10 Urine Color Light-yellow (Yellow) Urine Clarity Clear (Clear) Urine pH 5.0 (5.0-9.0) Urine Specific [place] 1.024 (1.001-1.035) Urine Protein Trace (Negative) H Urine Ketones Negative (Negative) Urine Blood 2+ /uL (Negative) H Urine Nitrite Negative (Negative) Urine Bilirubin Negative (Negative) Urine Urobilinogen Normal mg/dL (Negative) Urine Leukocyte Esterase Negative /uL (Negative) Urine RBC <1 /hpf (0 - 4) Urine WBC 1 /hpf (0 - 5) Urine Squamous Epithelial Cells Few /hpf (<5) Urine Bacteria Few /hpf (None Seen) H Urine Mucus Few (None Seen) Urine Glucose Normal mg/dL (Normal) Labs and/or images reviewed: Labs reviewed by me, Image(s) reviewed by me Assessment/Plan Assessment/Plan - 07/02 - she is feeling much improved after 2 units RBC. Her most recent bowel movement did have blood in it. She is unable to clarify whether the bowel was were dark black versus bright red, she says there was some varying between. Declines any hematemesis. She understands the plan and already has discussed the plan with GI doctor. NPO midnight GI bleed Anemia, acute blood loss anemia Hypotension secondary to anemia - presenting with GI bleed, per rectum. -hemoglobin 4.8, elevated RDW, normocytic anemia. Retic count elevated adequately Patient's last colonoscopy (per patient) was 5 years ago and had 3-5 polyps but otherwise normal PPI b.i.d. GI consult Transfuse blood listen 7. 07/02 patient has had 3 units RBC. Type and screen done, consent obtained. Transaminitis Diet NPO GI prophylaxis PPI b.i.d. DVT prophylaxis SCD/Lovenox Med tele Plan discussed with: Patient My Orders Orders - CE MCDONALD MD Procedure Category Date Status Time Packedcell-Noactive BBK 07/02/24 Transmitted Bleeding 21:02 Date of Service: Jul 02, 2024 Billing Provider: CE MCDONALD MD Common Visit Codes: [id number] INP/OBS CARE(HIGH) CE MCDONALD MD Jul 02, 2024 21:13
[2024-07-03] VITALS (13 sets, daily range): BP systolic 90–103; BP diastolic 39–63; PULSE 59–100; RESP 13–20; TEMP 98–99.1; O2SAT 94–100
[2024-07-03 07:22] LABS: Basophils # (auto) 0 10 ^3/uL (0-0.2); Basophils % (auto) 0.2 % (0.0-2.0); Eosinophils # (auto) 0.3 10 ^3/uL (0-0.8); Eosinophils % (auto) 4.4 % (0.0-7.0); Hematocrit 25.6 % (36.0-46.0); Hemoglobin 8.5 g/dL (12.2-16.2); Lymphocytes # (auto) 0.4 10 ^3/uL (0.4-5.4); Lymphocytes % (auto) 6.3 % (10.0-50.0); Mean Corpuscular Hemoglobin 29.3 pg (28.0-32.0); Mean Corpuscular Hgb Conc. 33.2 g/dL (32.0-36.0); Mean Corpuscular Volume 88.4 fL (80.0-100.0); Monocytes # (auto) 0.5 10 ^3/uL (0-1.3); Monocytes % (auto) 8.1 % (0.0-12.0); Neutrophils # (auto) 4.7 10 ^3/uL (1.6-8.6); Nucleated Red Blood Cells % 1.3 %; Platelet Count (auto) 213 10^3/uL (140-450); Red Cell Distribution Width 15.3 % (11.8-14.3); White Blood Cell 5.9 10^3/uL (4.4-10.8)
[2024-07-03 07:38] LABS: INR 1.19 (0.9-1.15); Prothrombin Time 12.5 sec (9.3-11.8)
[2024-07-03 07:40] LABS: Alanine Aminotransferase 56 U/L (7-40); Albumin 3.2 g/dL (3.2-4.8); Alkaline Phosphatase 60 U/L (46-116); Anion Gap 4 (5-15); Aspartate Aminotransferase 94 U/L (13-40); BUN/Creatinine Ratio 16.5 (10.0-20.0); Bilirubin, Total 0.8 mg/dL (0.2-1.0); Blood Urea Nitrogen 14 mg/dL (9-23); Calcium 8.5 mg/dL (8.7-10.4); Carbon Dioxide 29 mmol/L (20-31); Chloride 110 mmol/L (98-107); Glucose 93 mg/dL (74-106); Potassium 3.5 mmol/L (3.5-5.1); Sodium 143 mmol/L (136-145); Total Protein 4.9 g/dL (5.7-8.2)
--- NOTE | 2024-07-03 09:03 | DVH ---
CLINICAL INFORMATION: 73 years old, Female; elevated liver function tests. TECHNIQUE: Grayscale sonographic imaging of the right upper quadrant of the abdomen was performed, a ssisted by color Doppler techniques. COMPARISON: CT dated 07/02/2024. FINDINGS: The gallbladder wall measures 1.9 mm in thickness, within normal limits. No stones are s een. Negative reported sonographic martinez's sign. The common bile duct measures 4 mm in diameter, wi thin normal limits. Liver measures up to 16.2 cm in craniocaudal dimension, at the upper limits of normal. Unremarkable e chogenicity of the liver. The pancreas is partly obscured, likely by bowel gas. The visualized portions appear normal. The right kidney measures 10.0 cm. There is no hydronephrosis. Right renal cortical echogenicity a nd cortical thickness are within normal limits. IMPRESSION: 1. No sonographic evidence of acute cholecystitis. 2. No acute findings are seen in the right upper abdomen.
--- NOTE | 2024-07-03 10:43 | DVHPN2 ---
Progress Note Date Seen: Jul 03, 2024 Medical Necessity Reason Pt with a Central, PICC or Fol: No Subjective Patient reports: No new complaints Review of Systems: HEENT:Normal, CVS:Normal, RESPIRATORY:Normal, GI:Normal, :Normal, MSK:Normal, NEURO:Normal Objective vital signs Vital Sign Date Time Temp Pulse Resp B/P (MAP) Pulse Ox O2 Delivery O2 Flow Rate FiO2 07/03/24 09:00 99.1 75 20 90/39 (56) 95 99.1 07/02/24 20:00 Room Air* 0 21 Total Intake and Output 07/02/24 07/02/24 07/03/24 15:00 23:00 07:00 Intake Total 325 ml 300 ml Balance 325 ml 300 ml medications Current Medications Medications Dose Ordered Sig/Eulalia Route Start Time Stop Time Status Last Admin Dose Admin Furosemide 40 mg DAILY IV 07/02/24 10:00 07/02/24 08:27 40 MG Pantoprazole Sodium 40 mg BID IV 07/01/24 22:00 07/02/24 21:16 40 MG Carvedilol 3.125 mg Q12HR PO 07/01/24 22:00 07/02/24 08:27 3.125 MG Atorvastatin Calcium 20 mg HS PO 07/01/24 22:00 07/02/24 21:16 20 MG Sodium Chloride 10 ml Q8HR IV 07/01/24 22:00 07/03/24 05:30 10 ML Acetaminophen/ Hydrocodone Bitart 1 tab Q4HP PRN PO 07/01/24 21:45 Ondansetron HCl 4 mg Q4HP PRN IV 07/01/24 21:45 Docusate Sodium 100 mg BIDPRN PRN PO 07/01/24 21:45 Acetaminophen 500 mg Q6HP PRN PO 07/01/24 21:45 07/02/24 08:28 500 MG Nitroglycerin 0.4 mg Q5MINP PRN SL 07/01/24 23:00 Morphine Sulfate 2 mg Q30M PRN IV 07/01/24 23:00 Sodium Chloride 1,000 ml @ 50 mls/hr Q20H IV 07/02/24 16:30 07/02/24 16:48 50 MLS/HR Examination: GENERAL:Normal, HEENT:Normal, NECK:Normal, LUNGS:Normal, CVS:Normal, ABDOMEN:Normal, MSK:Normal, SKIN:Normal, NEURO:Normal, :Normal laboratory and microbiology Laboratory Tests 07/03/24 06:37 Test 07/03/24 06:37 Range/Units Serum Glucose 93 74-106 mg/dL Problem List/Assessment/Plan Problem List/Assessment/Plan #1 GI bleed ?ischemic bowel: ivf, ppi, egd today #2 cad #3 ?chronic systolic/diastolic heart failure: echo #4 severe anemia/acute blood loss s/p transfusion advance care planning- full code-time spent 21 mins Plan discussed with: Patient, Daughter My Orders My Orders Orders - REBECCA CHAWLA MD Procedure Category Date Status Time NS PHA 07/03/24 Verified 10:45 NS PHA 07/03/24 Verified 10:45 Echo 2d Mode Cardiac US 07/03/24 Verified DOP 10:39 Complete Blood Count LAB 07/04/24 Verified 06:00 Comprehensive LAB 07/04/24 Verified Metabolic Panel 06:00 Chest Portable XY 07/04/24 Verified 06:00 Date of Service: Jul 03, 2024 Billing Provider: REBECCA CHAWLA MD Common Visit Codes: [id number] INP/OBS CARE(HIGH) Secondary Visit Codes: [id number] CARE PLAN 30 MINUTES CC Plasma Assessment Blood Product Administration S: [id number] REBECCA CHAWLA MD Jul 03, 2024 10:43
[2024-07-03] MEDS: SODIUM CHLORIDE 0.9% 250 ML IV ONE (10:45)
[2024-07-03] MEDS: SODIUM CHLORIDE 0.9% 1,000 ML IV SCH (10:45)
[2024-07-03] MEDS ORDERED: SODIUM CHLORIDE LOCK 10 ML ONE (10:53)
[2024-07-03 11:33] LABS: Hepatitis B Core Total AB Negative (Negative)
[2024-07-03 12:32] LABS: Hepatitis A Total Antibody Negative (Negative); Hepatitis B Surface Antibody Negative (Negative)
[2024-07-03 12:33] LABS: Hepatitis B Surface Antigen Negative (Negative); Hepatitis C Antibody Negative (Negative)
[2024-07-03] MEDS: LIDOCAINE VISCOUS 2% 15ML UD ONE (12:53)
[2024-07-03] MEDS: diphenhdrAMINE HCL 50 MG/1 ML VL ONE (12:54)
[2024-07-03] MEDS: fentaNYL CITRATE 100 MCG/2 ML VL ONE (12:54)
[2024-07-03] MEDS: MIDAZOLAM HCL 5 MG/ML-1ML VIAL ONE (13:03)
--- NOTE | 2024-07-03 13:11 | DVHOP2 ---
Operative Report DATE OF OPERATION: 07/03/24 PROCEDURE: Upper Endoscopy with biopsy. PREOPERATIVE INDICATION: The patient is a 73 -year-old female undergoing endoscopy for severe anemia POSTOPERATIVE DIAGNOSES: 1. 2 cm acute pre-pyloric antral linear ulcer Brendon classification C with surrounding gastritis and hyperemia 2. 0.5 cm sliding-type hiatal hernia otherwise normal examination to the 2nd and 3rd part of the duodenal with no fresh or old blood in the stomach PROCEDURE PERFORMED BY: Grayson Lozano GI NURSE: Fany SCOPE: Olympus videoendoscope. ASA CLASS: 2. PREOPERATIVE MEDICATIONS: Versed 1 mg, Fentanyl 50 mcg, Benadryl 50 mg I administered moderate sedation throughout this _8_ minutes procedure. An independent trained observer pushed medications at my direction, and monitored the patient's level of consciousness and physiological status throughout. PROCEDURE IN DETAIL: After obtaining an informed consent, the patient was placed on left lateral decubitus position. The patient was then sedated with the above medications. A bite block was placed between her teeth. The endoscope was then passed through the oropharynx, into the esophagus, and through the stomach and pylorus up to the second and third part of the duodenum. The endoscope was then withdrawn. The 2nd and 3rd part of the duodenal and the duodenal bulb were normal. Duodenal biopsies were obtained The pre-pyloric area and antrum showed gastritis and there was a 1.5-2 cm pre- pyloric antral gastric ulcer in a linear fashion at 11 - 1 o'clock position. This was Brendon classification C with no visible vessel or active bleeding. On retroflexion the fundus cardia and angularis were normal. There was no fresh or old blood in the stomach The endoscope was then withdrawn into the distal esophagus where the patient had a 0.5 cm sliding-type hiatal hernia with no significant esophagitis The remaining distal and proximal esophagus and oropharynx were unremarkable The patient tolerated the procedure well without difficulty. COMPLICATIONS : None SPECIMENS: Duodenal biopsies Gastric biopsies DISPOSITION: Transfer back to the floor Stable PLAN: 1. Await for biopsy result 2. Will place pt on Protonix 40 mg bid 3. Carafate 1 g p.o. 4 times a day 4. Start with full liquid diet advance to soft mechanical 5. Discharge planning as per hospitalist 6. Outpatient follow up with GI Services to discuss elective surveillance co lonoscopy 7. Discontinue aspirin NSAIDs smoking spicy foods GRAYSON LOZANO MD 4, 2024 13:11
[2024-07-03] MEDS: SUCRALFATE 1 GM/10 ML ORAL SUSP PO SCH (16:58)
--- NOTE | 2024-07-03 17:11 | DVHSR ---
APPROVED REPORT EXAM: Two-dimensional and M-mode echocardiogram with Doppler and color Doppler. Blood Pressure: 90/39 mmHg INDICATION CAD RISK FACTORS Height: 5'2", Weight: 161 DIMENSIONS LVDd4.0 (3.8-5.7cm)LA (2D)3.8 (1.9-4.0cm)Aortic Root2.9 (2.0-3.7cm) LVDs2.8 (2.5-4.0cm)LA (MM) (1.9-4.0cm)Aortic Cusp Exc1.4 (1.5-2.0cm) EF (%) 57.0 (55-70%)Rt. Atrium6.3 (1.9-4.0cm)Asc. Aorta cm IVSd0.9 (0.7-1.1cm)RV (D)5.1 (1.8-2.4cm) PWd1.0 (0.7-1.1cm) Mitral Valve MitralMitral Stenosis E/A ratio0.02D MVAcm2 Aortic Valve Aortic ValveAortic Stenosis V10.58m/Sd Mean GR.6mmHg V21.66m/Sd Peak GR.11mmHg LVOT Diameter1.9 (1.8-2.4cm)Doppler AVA0.99cm2 Pulmonic Valve V20.73m/s Tricuspid Valve TR Velocity1.98m/s [id number] Other Information Quality : Technically LimitedRhythm : Technically limited study due to body habitus and patient position. Conclusion Normal left ventricular size and dimension. Normal left ventricular systolic function estimated ejec tion fraction 55%. There is a grade 1 diastolic dysfunction. Moderately severely enlarged right ventricle. Moderate to severely reduced right ventricular systoli c function. Vctf-cu-bhwoslquft elevated right ventricular systolic pressure 30 mm of mercury. Moderately dilated right atrium. Normal-sized left atrium. Severe torrential tricuspid valve regurgitation. Normal dhgr-de-soiojuqu mitral valve regurgitation. The aortic valve appears normal structure and function. The pulmonary valve has sltj-[id number]-wlgdmoew pulmonary valve regurgitation. No significant pericardial effusion.
[2024-07-04] VITALS (7 sets, daily range): BP systolic 84–149; BP diastolic 40–93; PULSE 18–94; RESP 18–20; TEMP 37.4; O2SAT 95–98
[2024-07-04] MEDS: diphenhdrAMINE HCL 25 MG CAP PO ONE (05:20)
[2024-07-04 06:38] LABS: Basophils # (auto) 0 10 ^3/uL (0-0.2); Basophils % (auto) 0.2 % (0.0-2.0); Eosinophils # (auto) 0.5 10 ^3/uL (0-0.8); Hematocrit 27.1 % (36.0-46.0); Hemoglobin 8.8 g/dL (12.2-16.2); Lymphocytes # (auto) 0.4 10 ^3/uL (0.4-5.4); Lymphocytes % (auto) 5.9 % (10.0-50.0); Mean Corpuscular Hgb Conc. 32.3 g/dL (32.0-36.0); Mean Corpuscular Volume 89.7 fL (80.0-100.0); Monocytes # (auto) 0.6 10 ^3/uL (0-1.3); Monocytes % (auto) 8.7 % (0.0-12.0); Neutrophils # (auto) 5.5 10 ^3/uL (1.6-8.6); Neutrophils % (auto) 78.2 % (37.0-80.0); Nucleated Red Blood Cells % 1.1 %; Platelet Count (auto) 241 10^3/uL (140-450); Red Blood Cells 3.02 10^6/uL (4.0-5.20); Red Cell Distribution Width 15.9 % (11.8-14.3)
[2024-07-04 06:58] LABS: Alanine Aminotransferase 51 U/L (7-40); Albumin 3.2 g/dL (3.2-4.8); Alkaline Phosphatase 71 U/L (46-116); Anion Gap 4 (5-15); Aspartate Aminotransferase 78 U/L (13-40); BUN/Creatinine Ratio 11.8 (10.0-20.0); Blood Urea Nitrogen 10 mg/dL (9-23); Calcium 8.1 mg/dL (8.7-10.4); Carbon Dioxide 26 mmol/L (20-31); Chloride 110 mmol/L (98-107); Glucose 93 mg/dL (74-106); Potassium 3.3 mmol/L (3.5-5.1); Sodium 140 mmol/L (136-145)
[2024-07-04 06:59] LABS: Bilirubin, Total 0.8 mg/dL (0.2-1.0); Total Protein 4.9 g/dL (5.7-8.2)
--- NOTE | 2024-07-04 07:05 | DVH ---
CHEST RADIOGRAPH Indication:CHF Technique: Single frontal view of the chest was obtained Comparison: XY CHEST PORTABLE on DOS: 07/01/24 FINDINGS: Lines and Tubes: None Lungs: No focal consolidation. Pleura: No effusion. No pneumothorax. Cardiomediastinal contours: Unremarkable Bones: No acute osseous abnormality. Soft tissues: Bilateral breast implants. IMPRESSION: 1. No acute cardiopulmonary disease.
--- NOTE | 2024-07-04 11:36 | DVHDS2 ---
Discharge Summary Date of Admission Jul 01, 2024 at 22:48 Date of Discharge: Jul 04, 2024 Labs/Diagnostic Data: Laboratory Results Test 07/04/24 08:55 07/04/24 05:58 07/03/24 06:37 07/01/24 22:10 Cortisol AM Sample 19.06 ug/dL (5.27-22.45) White Blood Count 7.0 10^3/uL (4.4-10.8) Red Blood Count 3.02 10^6/uL (4.0-5.20) Hemoglobin 8.8 g/dL (12.2-16.2) Hematocrit 27.1 % (36.0-46.0) Mean Corpuscular Volume 89.7 fL (80.0-100.0) Mean Corpuscular Hemoglobin 29.0 pg (28.0-32.0) Mean Corpuscular Hemoglobin Concent 32.3 g/dL (32.0-36.0) Red Cell Distribution Width 15.9 % (11.8-14.3) Platelet Count 241 10^3/uL (140-450) Mean Platelet Volume 7.7 fL (6.9-10.8) Neutrophils (%) (Auto) 78.2 % (37.0-80.0) Lymphocytes (%) (Auto) 5.9 % (10.0-50.0) Monocytes (%) (Auto) 8.7 % (0.0-12.0) Eosinophils (%) (Auto) 7.0 % (0.0-7.0) Basophils (%) (Auto) 0.2 % (0.0-2.0) Neutrophils # (Auto) 5.5 10 ^3/uL (1.6-8.6) Lymphocytes # (Auto) 0.4 10 ^3/uL (0.4-5.4) Monocytes # (Auto) 0.6 10 ^3/uL (0-1.3) Eosinophils # (Auto) 0.5 10 ^3/uL (0-0.8) Basophils # (Auto) 0 10 ^3/uL (0-0.2) Nucleated Red Blood Cells 1.1 % Sodium Level 140 mmol/L (136-145) Potassium Level 3.3 mmol/L (3.5-5.1) Chloride Level 110 mmol/L (98-107) Carbon Dioxide Level 26 mmol/L (20-31) Anion Gap 4 (5-15) Blood Urea Nitrogen 10 mg/dL (9-23) Creatinine 0.85 mg/dL (0.550-1.02) Glomerular Filtration Rate Calc 72 mL/min (>90) BUN/Creatinine Ratio 11.8 (10.0-20.0) Serum Glucose 93 mg/dL (74-106) Calcium Level 8.1 mg/dL (8.7-10.4) Total Bilirubin 0.8 mg/dL (0.2-1.0) Aspartate Amino Transferase (AST) 78 U/L (13-40) Alanine Aminotransferase (ALT) 51 U/L (7-40) Alkaline Phosphatase 71 U/L (46-116) Total Protein 4.9 g/dL (5.7-8.2) Albumin 3.2 g/dL (3.2-4.8) Prothrombin Time 12.5 sec (9.3-11.8) Prothrombin Time INR 1.19 (0.9-1.15) Hepatitis A Antibody Total Negative (Negative) Hepatitis B Surface Antigen Negative (Negative) Hepatitis B Surface Antibody Negative (Negative) Hepatitis B Core Total Antibody Negative (Negative) Hepatitis C Antibody Negative (Negative) Urine Color Light-yellow (Yellow) Urine Clarity Clear (Clear) Urine pH 5.0 (5.0-9.0) Urine Specific [place] 1.024 (1.001-1.035) Urine Protein Trace (Negative) Urine Ketones Negative (Negative) Urine Blood 2+ /uL (Negative) Urine Nitrite Negative (Negative) Urine Bilirubin Negative (Negative) Urine Urobilinogen Normal mg/dL (Negative) Urine Leukocyte Esterase Negative /uL (Negative) Urine RBC <1 /hpf (0 - 4) Urine WBC 1 /hpf (0 - 5) Urine Squamous Epithelial Cells Few /hpf (<5) Urine Bacteria Few /hpf (None Seen) Urine Mucus Few (None Seen) Urine Glucose Normal mg/dL (Normal) Test 07/01/24 20:55 07/01/24 19:30 Troponin I High Sensitivity 14 ng/L (</=34) Platelet Estimate Adequate Tear Drop Cells Few Reticulocyte Count (auto) 7.37 % (0.5-1.5) Lactate Dehydrogenase 246 U/L (120-246) B-Type Natriuretic Peptide 348.63 pg/mL (0-100) Other Laboratory Tests 07/04/24 05:58 Brief Hx & Hospital Course: SEE DICTATED NOTE Condition at Discharge: Fair Final Diagnosis/Problems List GI BLEED Discharge Disposition: Home Discharge Instruct/Medications Diet: Cardiac 2g Na,low cholest Activity: No Restrictions, As Tolerated Follow Up/Referral: FU WITH PCP IN 1 WK Medications: RESUME HOME MEDS SCRIPT TO PHARMACY DC ASA/NSAIDS Discharge Statement: "Patient was advised to return to the ER or call 911 if any headaches, dizziness, shortness of breath, chest pain, abdominal pain, bleeding, fevers, or worsening of medical condition. Patient was counseled about treatment plan, medications, possible side effects, patientverbalized understanding. All questions were answered to the best of my ability. This discharge took greater then 30 minutes in planning, reviewing documentation, counseling the patient, and discussing with other team members." ASSESSMENT ASSESSMENT Assessment GI BLEED Date of Service: Jul 04, 2024 Billing Provider: REBECCA CHAWLA MD Common Visit Codes: 23024-MTM/OBS DISCH DAY >30min REBECCA CHAWLA MD Jul 04, 2024 11:35
[2024-07-04] MEDS ORDERED: PANT40TA2 PO (11:37)
[2024-07-04] MEDS ORDERED: SUCR1TAB31 PO (11:37)
[2024-07-04] MEDS ORDERED: FER325T PO (11:37)
[2024-07-04] MEDS ORDERED: POTASSIUM CHL 20 Meq TABLET PO ONE (11:45)
[2024-07-04] MEDS ORDERED: CARV3.1240 PO (11:49)
[2024-07-04] MEDS ORDERED: ROSU40TA81 PO (11:49)
[2024-07-04] MEDS ORDERED: RIV20T PO (11:49)
[2024-07-04] MEDS ORDERED: GABA-1250 PO (11:49)
[2024-07-04] MEDS ORDERED: FURO20TA3 PO (11:49)
[2024-07-04] MEDS ORDERED: ESCI20TA PO (11:49)
--- NOTE | 2024-07-04 12:22 | DVHDS ---
DATE OF DISCHARGE: 07/04/2024 HISTORY OF PRESENT ILLNESS: The patient is a 73-year-old lady who was admitted with complaints of nausea, vomiting and abdominal pain and generalized weakness. The patient has history of congestive heart failure. HOSPITAL COURSE: The patient was noted to have a hemoglobin of 4.8. The patient was transfused a total of 3 units of blood. The patient had a CT of abdomen and pelvis that showed mucosal thickening of the left colon. The patient was seen in GI consult by Dr. Wilda Lozano. The patient underwent upper endoscopy that showed a 2 cm acute prepyloric antral linear ulcer with gastritis and hyperemia as well as a hiatal hernia. Biopsies were obtained. The patient had an echocardiogram done that showed a severely dilated right ventricle with a severe tricuspid regurgitation. The patient also had mild to moderate mitral regurgitation. The patient's hemoglobin at time of discharge is 8.8. The patient's LFTs were mildly elevated. The patient had a liver ultrasound that showed no acute findings. The patient will now be discharged home to resume her home medications, but is to avoid aspirin and nonsteroidals. She will also be placed on Protonix 40 mg b.i.d., Carafate 1 gram p.o. q.i.d. for 30 days and iron sulfate 325 mg daily. She is to have a repeat CBC in the next 4-5 days. I have discussed this in detail with the granddaughter whom I have given copies of the echocardiogram, the CT as well as the upper endoscopy reports. FINAL DIAGNOSES: Therefore, * Gastrointestinal bleeding with a prepyloric ulcer, status post upper endoscopy. * Severe anemia, status post blood transfusion. * History of coronary artery disease. * Chronic systolic/diastolic heart failure. * Severe tricuspid regurgitation with right ventricular dilatation. Time spent in discharge planning and review of plan with the patient and family was 39 minutes. MD JENNIFER Moncada/[place] TID: [id number] RECEIPT: [id number]
--- NOTE | 2024-07-04 18:37 | DVHPN2 ---
Progress Note - Dictate Date Seen: Jul 04, 2024 (Late entryPatient seen at 2:00 p.m.) Medical Necessity Reason Pt with a Central, PICC or Fol: No Subjective Patient seen at bedside Resting comfortably Tolerating diet No active GI bleeding EGD findings discussed with patient and findings of gastric ulcer discussed vital signs Vital Sign Date Time Temp Pulse Resp B/P (MAP) Pulse Ox O2 Delivery O2 Flow Rate FiO2 07/04/24 13:25 37.4 64 18 07/04/24 09:00 92/58 (69) 98 07/04/24 08:00 Room Air* 0 21 Total Intake and Output 07/03/24 07/03/24 07/04/24 15:00 23:00 07:00 Intake Total 10 ml 1100 ml 50 ml Balance 10 ml 1100 ml 50 ml objective General Appearance: Alert, Oriented X3, Cooperative, No acute distress HEENT: Atraumatic, PERRLA, EOMI, Mucous membr. moist/pink Respiratory: Clear to auscultation, Normal air movement Cardiovascular: Regular rate, Normal S1, Normal S2, No murmurs Abdominal: Normal bowel sounds, Soft, No tenderness, No hepatospenomegaly, No masses Extremities: No clubbing, No cyanosis, No edema, Normal pulses, No tenderness/swelling Skin: No rashes, No breakdown, No significant lesion Neuro: Normal speech, Normal tone, Sensation intact, Cranial nerves 3-12 NL, Reflexes 2+, Other (Generalized weakness) Psych/Mental Status: Mental status NL, Mood NL laboratory and microbiology Laboratory Tests 07/04/24 05:58 Test 07/04/24 05:58 Range/Units Serum Glucose 93 74-106 mg/dL Problems(with codes): (1) Gastric ulcer (2) Abnormal finding on GI tract imaging (3) Elevated liver enzymes (4) Symptomatic anemia (5) Blood loss anemia Prognosis Plan H&H is stable at 8.8 Continue Protonix 40 mg p.o. twice a day Carafate 1 g p.o. twice a day DC aspirin NSAIDs smoking and alcohol Liver enzymes are trending down Hepatitis panel is negative PER is negative Right upper quadrant ultrasound is negative Patient may have underlying fatty liver Discharge planning is in progress Outpatient follow up with me in 4-6 weeks or next available appointment to discuss elective colonoscopy Plan discussed with: Patient CC Plasma Assessment Blood Product Administration S: [id number] GRAYSON JOSE MD Jul 04, 2024 18:37
== END 2024-07-04 14:30 | disposition home or self-care (01) | DRG 378 ==
LOC: EDBD 19:10 → ER 19:10 → TELE 22:48 → TELE-EAST 23:31
PROVIDERS: ADMIT Nurse Practitioner Family; ATTEND Internal Medicine
PROC: 30233N1 Transfusion of Nonautologous Red Blood Cells into Peripheral Vein, Percutaneous Approach (ICD-10-PCS; principal; 2024-07-01)
PROC: 0DB98ZX Excision of Duodenum, Via Natural or Artificial Opening Endoscopic, Diagnostic (ICD-10-PCS; 2024-07-03)
PROC: 0DB68ZX Excision of Stomach, Via Natural or Artificial Opening Endoscopic, Diagnostic (ICD-10-PCS; 2024-07-03)
DX: K25.4 Chronic or unspecified gastric ulcer with hemorrhage (principal); D62 Acute posthemorrhagic anemia; I50.42 Chronic combined systolic (congestive) and diastolic (congestive) heart failure; M62.82 Rhabdomyolysis; K29.71 Gastritis, unspecified, with bleeding; I95.89 Other hypotension; I08.1 Rheumatic disorders of both mitral and tricuspid valves; K44.9 Diaphragmatic hernia without obstruction or gangrene; R74.01 Elevation of levels of liver transaminase levels; I25.10 Atherosclerotic heart disease of native coronary artery without angina pectoris; Z88.1 Allergy status to other antibiotic agents; Z83.3 Family history of diabetes mellitus
CPT/HCPCS: 36415; 43239; 71045; 74177; 76705; 80053; 81001; 82533; 83615; 83880; 84484; 85025; 85045; 85610; 86038; 86704; 86706; 86708; 86803; 86850; 86900; 86901; 86920; 87340; 93005; 93306; 96361; 96374; G0378; J2250; J2470; Q0162